=== PATIENT | male | born 1985 | race African-American/Black ===

== ENCOUNTER 2017-07-20 13:53 | Inpatient (IN) | payer SELFPAY ==
[~2017-07-20] VITALS: Ht 175.3 cm; Wt 93.9 kg
[2017-07-20 13:56] VITALS: BP 175/93; PULSE 45; RESP 16; TEMP 98.5; O2SAT 98
[2017-07-20] MEDS ORDERED: LIDOCAINE VISCOUS 2% SOLN 15 ML UDC PO ONE (14:15)
[2017-07-20] MEDS ORDERED: ALUMINUM/MAGNESIUM/SIMETH 30 ML CUP PO ONE (14:15)
[2017-07-20] MEDS ORDERED: SODIUM CHLORIDE 0.9% FLUSH 10 ML FLUSH IV FLUSH PRN ×2 (14:15→18:30)
[2017-07-20] MEDS ORDERED: SODIUM CHLOR 0.9% 1000 ML INJ 1,000 ML IV SCH (14:15)
[2017-07-20] MEDS ORDERED: FAMOTIDINE 20 MG/2 ML VIAL IV PUSH ONE (14:15)
--- NOTE | 2017-07-20 14:21 | PD ---
HPI Chief Complaint: GI Complaint Time Seen by Provider: 14:14 Travel History International Travel<30 days: No Contact w/Intl Traveler<30days: No Traveled to known affect area: No History of Present Illness HPI 32-year-old Afro-Cuban male presents the emergency department with 3 day history of nausea, vomiting, and generalized abdominal pain. Patient states he thought it was a stomach bug and was trying to ride it out. Patient states he just isn't getting better and can't keep anything down. Patient states no diarrhea but he hasn't been eating due to the vomiting. Patient denies specific point tenderness in the abdomen. He has generalized epigastric tenderness. He denies blood in the emesis. He denies fever but has had chills. He has generalized body aches and weakness. He is urinating but it is decreased in volume. His pain is 3 out of 10. He is allergic to penicillin PFSH Past Medical History Medical History: Denies Significant Hx Past Surgical History Surgical History: No Previous Surgery Social History Alcohol Use: No Tobacco Use: No Substance Use: No Allergies-Medications (Allergen,Severity, Reaction): Coded Allergies: Penicillins (Verified Allergy, Severe, Hives, 07/20/17) Reported Meds & Prescriptions Reported Meds & Active Scripts Active No Active Prescriptions or Reported Medications Review of Systems Except as stated in HPI: all other systems reviewed are Neg General / Constitutional: Positive: Chills, No: Fever Eyes: No: Visual changes HENT: No: Headaches Cardiovascular: No: Chest Pain or Discomfort Respiratory: No: Shortness of Breath Gastrointestinal: Positive: Nausea, Vomiting, Abdominal Pain, Loss of Appetite , No: Diarrhea, Hematemesis, Hematochezia, Constipation, Changes in Bowel Habits , Indigestion, Dysphagia Genitourinary: Positive: Decreased Urinary Output, No: Dysuria Musculoskeletal: No: Pain Skin: No Rash Neurologic: No: Weakness Psychiatric: No: Depression Endocrine: No: Polydipsia Hematologic/Lymphatic: No: Easy Bruising Physical Exam Narrative GENERAL: Patient appears ill but not septic. SKIN: Warm and dry. Normal color. Decreased turgor. HEAD: Atraumatic. Normocephalic. EYES: Pupils equal and round. No scleral icterus. No injection or drainage. ENT: No nasal bleeding or discharge. Mucous membranes pink and dry. Pharynx is clear. Airway is patent. NECK: Trachea midline. Supple and nontender. CARDIOVASCULAR: Bradycardic rate and normal rhythm. Patient states this is normal for him. RESPIRATORY: No accessory muscle use. Clear to auscultation. Breath sounds equal bilaterally. GASTROINTESTINAL: Abdomen soft, generalized nonspecific tenderness, nondistended. No point tenderness or rebound. No CVA tenderness. Hepatic and splenic margins not palpable. MUSCULOSKELETAL: Extremities without clubbing, cyanosis, or edema. No obvious deformities. NEUROLOGICAL: Awake and alert. No obvious cranial nerve deficits. Motor grossly within normal limits. Five out of 5 muscle strength in the arms and legs. Normal speech. PSYCHIATRIC: Appropriate mood and affect; insight and judgment normal. Data Data Last Documented VS Vital Signs Date Time Temp Pulse Resp B/P (MAP) Pulse Ox O2 Delivery O2 Flow Rate FiO2 07/20/17 16:22 98.2 52 17 139/73 (95) 99 Orders Orders Complete Blood Count With Diff (07/20/17 14:15) Comprehensive Metabolic Panel (07/20/17 14:15) Lipase (07/20/17 14:15) Lactic Acid (07/20/17 14:15) Prothrombin Time / Inr (Pt) (07/20/17 14:15) Act Partial Throm Time (Ptt) (07/20/17 14:15) Urinalysis - C+S If Indicated (07/20/17 14:15) Ct Abd/Pel W Iv Contrast(Rout) (07/20/17 14:15) Iv Access Insert/Monitor (07/20/17 14:15) Ecg Monitoring (07/20/17 14:15) Oximetry (07/20/17 14:15) NPO (07/20/17 14:15) Sodium Chlor 0.9% 1000 Ml Inj (Ns 1000 M (07/20/17 14:15) Sodium Chloride 0.9% Flush (Ns Flush) (07/20/17 14:15) Chest, Single Ap (07/20/17 14:15) Famotidine Inj (Pepcid Inj) (07/20/17 14:15) Al-Mag Hy-Si 40-40-4 Mg/Ml Liq (Mag-Al P (07/20/17 14:15) Lidocaine 2% Viscous (Xylocaine 2% Visco (07/20/17 14:15) Iohexol 350 Inj (Omnipaque 350 Inj) (07/20/17 15:22) Sodium Chlor 0.9% 1000 Ml Inj (Ns 1000 M (07/20/17 15:50) Sodium Chlor 0.9% 1000 Ml Inj (Ns 1000 M (07/20/17 16:20) Hydromorphone Pf Inj (Dilaudid Pf Inj) (07/20/17 16:00) Admit Order (Ed Use Only) (07/20/17 16:55) Labs Laboratory Tests Test 07/20/17 14:30 White Blood Count 11.3 TH/MM3 Red Blood Count 5.45 MIL/MM3 Hemoglobin 15.7 GM/DL Hematocrit 46.8 % Mean Corpuscular Volume 85.9 FL Mean Corpuscular Hemoglobin 28.7 PG Mean Corpuscular Hemoglobin Concent 33.5 % Red Cell Distribution Width 13.3 % Platelet Count 218 TH/MM3 Mean Platelet Volume 8.9 FL Neutrophils (%) (Auto) 73.9 % Lymphocytes (%) (Auto) 11.0 % Monocytes (%) (Auto) 12.0 % Eosinophils (%) (Auto) 0.9 % Basophils (%) (Auto) 2.2 % Neutrophils # (Auto) 8.3 TH/MM3 Lymphocytes # (Auto) 1.2 TH/MM3 Monocytes # (Auto) 1.4 TH/MM3 Eosinophils # (Auto) 0.1 TH/MM3 Basophils # (Auto) 0.2 TH/MM3 CBC Comment DIFF FINAL Differential Comment Prothrombin Time 10.0 SEC Prothromb Time International Ratio 0.9 RATIO Activated Partial Thromboplast Time 28.4 SEC Blood Urea Nitrogen 25 MG/DL Creatinine 9.53 MG/DL Random Glucose 85 MG/DL Total Protein 8.1 GM/DL Albumin 4.3 GM/DL Calcium Level 9.1 MG/DL Alkaline Phosphatase 62 U/L Aspartate Amino Transf (AST/SGOT) 33 U/L Alanine Aminotransferase (ALT/SGPT) 25 U/L Total Bilirubin 0.5 MG/DL Sodium Level 133 MEQ/L Potassium Level 3.5 MEQ/L Chloride Level 98 MEQ/L Carbon Dioxide Level 26.9 MEQ/L Anion Gap 8 MEQ/L Estimat Glomerular Filtration Rate 8 ML/MIN Lactic Acid Level 1.0 mmol/L Lipase 115 U/L MDM Medical Decision Making Medical Screen Exam Complete: Yes Emergency Medical Condition: Yes Differential Diagnosis Nausea vomiting. Gastritis. Epigastric pain. Narrative Course Patient is medically stable at time of exam. Labs ordered including CBC, CMP, lactic acid, lipase, and urinalysis. CT of the abdomen and pelvis is ordered. Chest x-ray is ordered. IV access is obtained patient is given 4 mg Zofran IV, as well as 20 mg Pepcid IV. Patient is given thousand milligrams normal saline bolus. CBC shows slight leukocytosis of 11.3. Chemistry shows mild hyponatremia of 133, BUN 25, creatinine of 9.53 GFR is 8. Lactic acid is 1.0. Coagulation studies are normal. Patient is given 1 mg hydromorphone IV for his abdominal pain. Patient is started on 2 L bolus of normal saline. Patient is discussed with Dr. Park, and call was placed to the natural resources professor as well as the hospitalist for admission. Patient is discussed with Dr. Lima, who recommended fluids and hospitalization. Patient was discussed with Dr. Haywadr, the resident, who agreed to admit the patient. Diagnosis Primary Impression: Acute renal failure Qualified Codes: N17.9 - Acute kidney failure, unspecified Additional Impressions: Elevated serum creatinine Nausea and vomiting Qualified Codes: R11.2 - Nausea with vomiting, unspecified Abdominal pain Qualified Codes: R10.84 - Generalized abdominal pain Admitting Information Admitting Physician Requests: Admit Scripts No Active Prescriptions or Reported Meds Condition: Stable Ken Cruz Jul 20, 2017 14:21
--- NOTE | 2017-07-20 14:43 | RADRPT ---
EXAM DATE/TIME: 07/20/2017 14:20 [facility] COMPARISON: No previous studies available for comparison. INDICATIONS : Nausea, vomiting, fever x4 days. MEDICAL HISTORY : None. SURGICAL HISTORY : None. ENCOUNTER: Initial ACUITY: 4 - 6 days PAIN SCORE: 0/10 LOCATION: Chest FINDINGS: A single view of the chest demonstrates the lungs to be symmetrically aerated without evidence of mas s, infiltrate or effusion. The cardiomediastinal contours are unremarkable. Osseous structures are intact. CONCLUSION: Normal examination. Earnest Brock MD on July 20, 2017 at 14:41 Board Certified Radiologist. This report was verified electronically.
[2017-07-20 15:08] LABS: AUTOMATED NEUTROPHIL # 8.3 TH/MM3 (1.8-7.7); BASOPHIL # 0.2 TH/MM3 (0-0.2); BASOPHIL % 2.2 % (0.0-2.0); EOSINOPHIL # 0.1 TH/MM3 (0-0.4); EOSINOPHIL % 0.9 % (0.0-4.0); HEMATOCRIT 46.8 % (39.0-51.0); HEMO FLAGS DIFF FINAL; LYMPHOCYTE # 1.2 TH/MM3 (1.0-4.8); MEAN CELL VOLUME 85.9 FL (80.0-100.0); MEAN CORPUSCULAR HEMOGLOBIN 28.7 PG (27.0-34.0); MEAN CORPUSCULAR HGB CONC 33.5 % (32.0-36.0); NEUT % 73.9 % (16.0-70.0); PLATELET COUNT 218 TH/MM3 (150-450); RED BLOOD COUNT 5.45 MIL/MM3 (4.50-5.90); RED CELL DISTRIBUTION WIDTH 13.3 % (11.6-17.2); WHITE BLOOD COUNT 11.3 TH/MM3 (4.0-11.0)
--- NOTE | 2017-07-20 15:09 | PD ---
Physical Exam Date Seen by Provider: Jul 20, 2017 Narrative Patient presents with vomiting for the last 3 days. Data Data Last Documented VS Vital Signs Date Time Temp Pulse Resp B/P (MAP) Pulse Ox O2 Delivery O2 Flow Rate FiO2 07/20/17 14:26 (120) 07/20/17 13:56 98.5 45 16 98 Orders Orders Complete Blood Count With Diff (07/20/17 14:15) Comprehensive Metabolic Panel (07/20/17 14:15) Lipase (07/20/17 14:15) Lactic Acid (07/20/17 14:15) Prothrombin Time / Inr (Pt) (07/20/17 14:15) Act Partial Throm Time (Ptt) (07/20/17 14:15) Urinalysis - C+S If Indicated (07/20/17 14:15) Ct Abd/Pel W Iv Contrast(Rout) (07/20/17 14:15) Iv Access Insert/Monitor (07/20/17 14:15) Ecg Monitoring (07/20/17 14:15) Oximetry (07/20/17 14:15) NPO (07/20/17 14:15) Sodium Chlor 0.9% 1000 Ml Inj (Ns 1000 M (07/20/17 14:15) Sodium Chloride 0.9% Flush (Ns Flush) (07/20/17 14:15) Chest, Single Ap (07/20/17 14:15) Famotidine Inj (Pepcid Inj) (07/20/17 14:15) Al-Mag Hy-Si 40-40-4 Mg/Ml Liq (Mag-Al P (07/20/17 14:15) Lidocaine 2% Viscous (Xylocaine 2% Visco (07/20/17 14:15) Labs Laboratory Tests Test 07/20/17 14:30 MDM Supervised Visit with SAMMY: Yes Narrative Course I, Dr. Park, have reviewed the advance practice practitioner's documentation and am in agreement, met with the patient face to face, made the diagnosis, and the medical decision making was done by me. *My assessment and Findings: This is a healthy-appearing young man who does not appear to be in any acute distress. He does act like he feels poorly. His abdomen is soft with some diffuse tenderness. Please see Kolton Cruz PA-C's note for results of laboratory and radiographic evaluation, ED course, final diagnosis and disposition Scripts No Active Prescriptions or Reported Meds Condition: Khalida Arreola MD Jul 20, 2017 15:09
[2017-07-20 15:18] LABS: ALKALINE PHOSPHATASE 62 U/L (45-117); TOTAL BILIRUBIN ADULT 0.5 MG/DL (0.2-1.0)
[2017-07-20] MEDS ORDERED: IOHEXOL 350 MG/ML 10 ML VIAL (for RAD DIAG) IVCONTRAST ONE (15:22)
[2017-07-20 15:35] LABS: ALT (GPT) 25 U/L (12-78); ANION GAP 8 MEQ/L (5-15); AST (GOT) 33 U/L (15-37); BICARBONATE 26.9 MEQ/L (21.0-32.0); BLOOD UREA NITROGEN 25 MG/DL (7-18); CHLORIDE 98 MEQ/L (98-107); GLOMERULAR FILTRATION RATE 8 ML/MIN (>89); POTASSIUM 3.5 MEQ/L (3.5-5.1); SODIUM (NA) 133 MEQ/L (136-145)
[2017-07-20 15:44] LABS: APTT (PATIENT) 28.4 SEC (24.3-30.1); INTERNATIONAL NORMALIZED RATIO 0.9 RATIO
--- NOTE | 2017-07-20 15:48 | RADRPT ---
EXAM DATE/TIME: 07/20/2017 15:21 [facility] COMPARISON: No previous studies available for comparison. INDICATIONS : Epigastric pain. IV CONTRAST: 82 cc Omnipaque 350 (iohexol) IV ORAL CONTRAST: No oral contrast ingested. RADIATION DOSE: 6.25 CTDIvol (mGy) MEDICAL HISTORY : None SURGICAL HISTORY : None. ENCOUNTER: Initial ACUITY: 1 day PAIN SCALE: 4/10 LOCATION: upper quadrant TECHNIQUE: Volumetric scanning of the abdomen and pelvis was performed. Using automated exposure control and ad justment of the mA and/or kV according to patient size, radiation dose was kept as low as reasonably achievable to obtain optimal diagnostic quality images. DICOM format image data is available electro nically for review and comparison. FINDINGS: LOWER LUNGS: The visualized lower lungs are clear. LIVER: Homogeneous density without lesion. There is no dilation of the biliary tree. No calcified gallston es. SPLEEN: Normal size without lesion. PANCREAS: Within normal limits. KIDNEYS: Normal in size and shape. There is no mass, stone or hydronephrosis. ADRENAL GLANDS: Within normal limits. VASCULAR: There is no aortic aneurysm. BOWEL/MESENTERY: The stomach, small bowel, and colon demonstrate no acute abnormality. There is no free intraperitone al air or fluid. ABDOMINAL WALL: Within normal limits. RETROPERITONEUM: There is no lymphadenopathy. BLADDER: No wall thickening or mass. REPRODUCTIVE: Within normal limits. INGUINAL: There is no lymphadenopathy or hernia. MUSCULOSKELETAL: Within normal limits for patient age. CONCLUSION: Normal examination. Asim Leyva Jr., MD on July 20, 2017 at 15:42 Board Certified Radiologist. This report was verified electronically.
[2017-07-20] MEDS ORDERED: SODIUM CHLOR 0.9% 1000 ML INJ 1,000 ML IV ONE ×2 (15:50→16:20)
[2017-07-20] MEDS ORDERED: HYDROmorphone HCL PF 1 MG/ML VIAL IV PUSH ONE (16:00)
[2017-07-20 16:22] VITALS: BP 139/73; PULSE 52; RESP 17; TEMP 98.2; O2SAT 99
--- NOTE | 2017-07-20 17:37 | HHI.HP ---
HPI Service Family Medicine Primary Care Physician No Primary Care Physician Admission Diagnosis Acute Renal Failure Diagnoses: International Travel<30 Days: No Contact w/Intl Traveler<30days: No Known Affected Area: No History of Present Illness Mr. Nelson is a 32-year-old male with no past medical history presenting with nausea and vomiting. He states that his vomiting started 3 days ago, Saturday. He thought he had a caught a bug from his family because they were sick with colds. He had not eaten anything differently. He also states that he has abdominal pain. He describes this pain as a 6 out of 10, diffuse aching pain that is constant with no radiation. Vomiting makes it worse and a medication given in the ED made it better. He describes the vomit as looking like whatever he ate. Nonbloody, but bilious (greenish). He ultimately came to the hospital today because of vomiting wouldn't stop. The last meal that stayed down was 3 days ago, Saturday. He states that he also had decreased urine output. These last few days he has only urinated twice. He usually urinates a lot during the day. He describes his urine as not cloudy, nonbloody. No family history of any kidney problems no PMH of kidney problems. No history of any kidney stones. He took one antibiotic pill that he got from a friend a few days ago. Only took 2 ibuprofens a day. He has also been constipated for the past few days. He had one black stool today. However, he has used Pepto-Bismol these past few days. Review of Systems Constitutional: COMPLAINS OF: Diaphoretic episodes, Chills, Dizziness, Change in appetite (decreased), Night Sweats, DENIES: Fever Eyes: DENIES: Blurred vision Ears, nose, mouth, throat: DENIES: Tinnitus, Running Nose Respiratory: COMPLAINS OF: Cough (started today), DENIES: Shortness of breath Cardiovascular: DENIES: Chest pain, Palpitations, Dyspnea on Exertion, Lower Extremity Edema Gastrointestinal: COMPLAINS OF: Abdominal pain, Black stools, Constipation, DENIES: Bloody stools, Difficulty Swallowing Musculoskeletal: DENIES: Joint pain, Joint Swelling Integumentary: DENIES: Rash Hematologic/lymphatic: DENIES: Bruising Neurologic: COMPLAINS OF: Headache, DENIES: Localized weakness, Paresthesias Past Family Social History Past Medical History none Past Surgical History cleft palate repaired Reported Medications Multivitamins Fish oil Allergies: Coded Allergies: Penicillins (Verified Allergy, Severe, Hives, 07/20/17) Family History Mother- HTN Father- Decreased, from dementia Social History Lives in [place] Lives with a roommate Works at [employer] Alcohol- one cup of Fausto a night Cigarettes- black and milds, 3 a day since 13 Illicit drugs- marijuana 2 joints a day since 14 Sexual hx- interested in women has 2 partners had hx of gonorrhea Physical Exam Vital Signs Vital Signs Date Time Temp Pulse Resp B/P (MAP) Pulse Ox O2 Delivery O2 Flow Rate FiO2 07/20/17 16:31 17 07/20/17 16:22 98.2 52 17 139/73 (95) 99 07/20/17 14:26 (120) 07/20/17 13:56 98.5 45 16 175/93 (120) 98 Physical Exam GENERAL: This is a well-nourished, well-developed -[place]er male patient laying in bed, in no apparent distress. Bright green vomit stains the blankets on his bed. SKIN: No rashes, ecchymoses or lesions. Cool and dry. HEAD: Atraumatic. Normocephalic. No temporal or scalp tenderness. EYES: Pupils equal round and reactive. Extraocular motions intact. No scleral icterus. No injection or drainage. ENT: Nose without bleeding, purulent drainage or septal hematoma. Throat without erythema, tonsillar hypertrophy or exudate. Uvula midline. Airway patent. NECK: Trachea midline. No JVD or lymphadenopathy. Supple, nontender, no meningeal signs. CARDIOVASCULAR: Regular rate and rhythm without murmurs, gallops, or rubs. RESPIRATORY: Clear to auscultation. Breath sounds equal bilaterally. No wheezes , rales, or rhonchi. GASTROINTESTINAL: Abdomen soft, non-tender, nondistended. No hepato-splenomegaly , or palpable masses. No guarding. BACK: No CVA tenderness MUSCULOSKELETAL: Extremities without clubbing, cyanosis, or edema. No joint tenderness, effusion, or edema noted. NEUROLOGICAL: Awake and alert. Motor and sensory grossly within normal limits. Normal speech. Laboratory Laboratory Tests Test 07/20/17 14:30 White Blood Count 11.3 Red Blood Count 5.45 Hemoglobin 15.7 Hematocrit 46.8 Mean Corpuscular Volume 85.9 Mean Corpuscular Hemoglobin 28.7 Mean Corpuscular Hemoglobin Concent 33.5 Red Cell Distribution Width 13.3 Platelet Count 218 Mean Platelet Volume 8.9 Neutrophils (%) (Auto) 73.9 Lymphocytes (%) (Auto) 11.0 Monocytes (%) (Auto) 12.0 Eosinophils (%) (Auto) 0.9 Basophils (%) (Auto) 2.2 Neutrophils # (Auto) 8.3 Lymphocytes # (Auto) 1.2 Monocytes # (Auto) 1.4 Eosinophils # (Auto) 0.1 Basophils # (Auto) 0.2 CBC Comment DIFF FINAL Differential Comment Prothrombin Time 10.0 Prothromb Time International Ratio 0.9 Activated Partial Thromboplast Time 28.4 Blood Urea Nitrogen 25 Creatinine 9.53 Random Glucose 85 Total Protein 8.1 Albumin 4.3 Calcium Level 9.1 Alkaline Phosphatase 62 Aspartate Amino Transf (AST/SGOT) 33 Alanine Aminotransferase (ALT/SGPT) 25 Total Bilirubin 0.5 Sodium Level 133 Potassium Level 3.5 Chloride Level 98 Carbon Dioxide Level 26.9 Anion Gap 8 Estimat Glomerular Filtration Rate 8 Lactic Acid Level 1.0 Lipase 115 Result Diagram: 07/20/17 1430 07/20/17 1430 Imaging Last Impressions Chest X-Ray 07/20/171414 Signed Impressions: Service Date/Time: Thursday, July 20, 2017 14:20 - CONCLUSION: Normal examination. Earnest Brock MD Abdomen/Pelvis CT 07/20/171414 Signed Impressions: Service Date/Time: Thursday, July 20, 2017 15:21 - CONCLUSION: Normal examination. MD Michael Woods Jr.i VTE Risk Assessment Caprini VTE Risk Assessment: No/Low Risk (score <= 1) Caprini Risk Assessment Model Point Value = 1 Point Value = 2 Point Value = 3 Point Value = 5 Age 41-60 Minor surgery BMI > 25 kg/m2 Swollen legs Varicose veins or History of unexplained or recurrent spontaneous Oral contraceptives or hormone replacement Sepsis (< 1 month) Serious lung disease, including pneumonia (< 1 month) Abnormal pulmonary function Acute myocardial infarction Congestive heart failure (< 1 month) History of inflammatory bowel disease Medical patient at bed rest Age 61-74 Arthroscopic surgery Major open surgery (> 45 min) Laparoscopic surgery (> 45 min) Malignancy Confined to bed (> 72 hours) Immobilizing plaster cast Central venous access Age >= 75 History of VTE Family history of VTE Factor V Leiden Prothrombin [id number] Lupus anticoagulant Anticardiolipin antibodies Elevated serum homocysteine Heparin-induced thrombocytopenia Other congenital or acquired thrombophilia Stroke (< 1 month) Elective arthroplasty Hip, pelvis, or leg fracture Acute spinal cord injury (< 1 month) Prophylaxis Regimen Total Risk Factor Score Risk Level Prophylaxis Regimen 0-1 Low Early ambulation 2 Moderate Order ONE of the following: *Sequential Compression Device (SCD) *Heparin 5000 units SQ BID 3-4 Higher Order ONE of the following medications: *Heparin 5000 units SQ TID *Enoxaparin/Lovenox 40 mg SQ daily (WT < 150 kg, CrCl > 30 mL/min) *Enoxaparin/Lovenox 30 mg SQ daily (WT < 150 kg, CrCl > 10-29 mL/min) *Enoxaparin/Lovenox 30 mg SQ BID (WT < 150 kg, CrCl > 30 mL/min) AND/OR *Sequential Compression Device (SCD) 5 or more Highest Order ONE of the following medications: *Heparin 5000 units SQ TID (Preferred with Epidurals) *Enoxaparin/Lovenox 40 mg SQ daily (WT < 150 kg, CrCl > 30 mL/min) *Enoxaparin/Lovenox 30 mg SQ daily (WT < 150 kg, CrCl > 10-29 mL/min) *Enoxaparin/Lovenox 30 mg SQ BID (WT < 150 kg, CrCl > 30 mL/min) AND *Sequential Compression Device (SCD) Assessment and Plan Assessment and Plan Mr. Nelson is a 32-year-old male presenting with vomiting. He is being admitted for acute renal failure. Creatinine upon admission to the ED was 9.53. Code Status Full Code Discussed Condition With SDW Dr. Deborah Hayward Problem List: (1) Acute renal failure ICD Codes: N17.9 - Acute kidney failure, unspecified Status: Acute Plan: Creatinine upon admission to the ED was 9.53. Last creatinine on record at [facility] was 02/2004 which was 1.9. Previous to that was 05/2003- 1.1. Patient did have a CT with contrast today so will expect a greater increase in creatinine. BUN at 25. Most likely due to dehydration from vomiting. * Given 2 2L boluses and a 1L bolus in ED * Nephrology consulted, appreciate recs * D5W-1/2NS at 100mls/hr * maintenance IV fluids and send the workup for vasculitis including RIVAS, ANCA and also serum protein electrophoresis along with complement. * If his renal function does not improve, he possibly will need dialysis. Also he will need biopsy of the kidney. * Repeat BMP at 1999 * Monitor I&Os * Avoid nephrotoxic medications * Renally dose medications (2) Dehydration ICD Codes: E86.0 - Dehydration Status: Acute Plan: Due to vomiting and not hydrating for the past 3 days. * See plan above for ED course and IVF regimen (3) Nausea and vomiting ICD Codes: R11.2 - Nausea with vomiting, unspecified Status: Acute Plan: Mostly due to gastritis. * See plan above for hydration * NPO for now, advance diet as tolerated * Zofran for nausea (4) FEN Status: Acute Plan: Fluids: Maintenance fluids as above Electrolytes: Monitor and replete as needed Nutrition: NPO for now, advance as tolerated DVT ppx: Not indicated at this time GI ppx: PRN meds Pain mgmt: Tylenol and [place] Physician Certification 2 Midnight Certification Type: Admission for Inpatient Services Order for Inpatient Services The services are ordered in accordance with Medicare regulations or non- Medicare payer requirements, as applicable. In the case of services not specified as inpatient-only, they are appropriately provided as inpatient services in accordance with the 2-midnight benchmark. Estimated LOS (days): 2 days is the estimated time the patient will need to remain in the hospital, assuming treatment plan goals are met and no additional complications. Post-Hospital Plan: Home Problem Qualifiers (1) Acute renal failure: Qualified Codes: N17.9 - Acute kidney failure, unspecified (2) Nausea and vomiting: Qualified Codes: R11.2 - Nausea with vomiting, unspecified Lisa Redman MD R1 Jul 20, 2017 17:37
[2017-07-20 17:45] VITALS: BP 126/81; TEMP 97.8
--- NOTE | 2017-07-20 18:23 | MB ---
cc: ROSIBEL DUFFY MD DATE OF CONSULTATION: 07/20/2017. REASON FOR CONSULTATION: Elevated BUN and creatinine. HISTORY OF PRESENT ILLNESS: This is a 32-year-old male with no significant past medical history who came to the hospital with complaint of abdominal pain mainly in the epigastric area associated with vomiting. I was called to see the patient because of very high BUN and creatinine. The patient denies any known history of renal disease. He has not been seeing any steel sampler or any other medical doctors. On looking back, it seems like his creatinine was 1.1 in 2002 and 1.9 in 2003. He did not have any labs in-between them. The patient started vomiting about four days ago with epigastric pain and since he had pain, he was taking ibuprofen [id number] and he was vomiting extensively about six to seven times per day. There was no blood in the vomitus. He does not have any diarrhea. He has constipation. He did notice that his urine output has decreased and he passed urine two times only in the last three days. There was no blood in the urine. He denies any history of renal stone or any other renal disease in the family. PAST MEDICAL HISTORY: None. PAST SURGICAL HISTORY: Cleft palate repair. REVIEW OF SYSTEMS: The patient has generalized weakness, feeling tired. He has this nausea, vomiting and epigastric pain going on for the last four days, vomiting almost seven to eight times per day. There is no history of diarrhea. He has constipation. He has epigastric pain. There is no shortness of breath. No chest pain. No palpitations. No dysuria or hematuria but he has decreased urine output for the last three days. He passed urine only twice. SOCIAL HISTORY: The patient is single. 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 He smokes a cigar three to four per day. He uses marijuana. He drinks liquor five times a week. ALLERGIES: HE HAS ALLERGY TO PENICILLIN. MEDICATIONS: He was given IV fluids and he was given Dilaudid. PHYSICAL EXAMINATION: GENERAL: On examination the patient is awake, alert. He is not in acute distress. VITAL SIGNS: His last blood pressure was 126/81, temperature 97.8, oxygen saturation 99%. HEAD, EYES, EARS, NOSE, THROAT: The pupils are mid constricted. Nonicteric sclerae. Conjunctivae are pale. NECK: The neck is supple. JVD is not elevated. LUNGS: The patient has bilateral good air entry with occasional wheezing. HEART: S1 and S2 regular rhythm. ABDOMEN: Abdomen soft and lax. There is mild epigastric tenderness. There is no rebound or rigidity. Bowel sounds positive. EXTREMITIES: There is no pedal edema. INVESTIGATIONS: White blood cell count is 11.3, hemoglobin 15.7, platelet count of 218,000. Neutrophils 73.9%. Eosinophils 0.9%. Sodium 133, potassium 3.5, chloride 98, bicarbonate 26.9, BUN 25, creatinine 9.5, total bilirubin is 0.5. AST and ALT are normal. Total protein is 8.1 with albumin of 4.3. INR is 0.9. Urinalysis showing that there is no protein but this was done in 2002. IMAGING STUDIES: CT scan of the abdomen and pelvis was done with IV contrast and showed that both kidneys look normal in size. There is no hydronephrosis or mass. Chest x-ray was also done which was normal. ASSESSMENT AND PLAN: 1. Acute kidney injury with possibility of chronic kidney disease. 2. Vomiting and epigastric pain, possible gastritis. 3. Dehydration. 4. Hyponatremia. The patient has very high BUN and creatinine. Part of this could be acute because of vomiting and dehydration. He needs more hydration. He has been given boluses of IV fluids. I will put him on maintenance IV fluids and send the workup for vasculitis including RIVAS, ANCA and also serum protein electrophoresis along with complement. If his renal function does not improve, he possibly will need dialysis. This was discussed with the patient and also he will need biopsy of the kidney. Thank you for the consultation and I will follow the patient while he is in the hospital. MD TEODORA Morrell/MIGUEL /5:55 PM /6:08 PM
[2017-07-20] MEDS ORDERED: MAGNESIUM HYDROXIDE SUSP 30 ML CUP PO PRN (18:30)
[2017-07-20] MEDS ORDERED: SENNOSIDES 8.6 MG TAB PO PRN (18:30)
[2017-07-20] MEDS ORDERED: NALOXONE HCL 0.4 MG/ML AMP IV PUSH PRN ×2 (18:30→21:30)
[2017-07-20] MEDS ORDERED: BISACODYL 10 MG SUPP RECTAL PRN (18:30)
[2017-07-20] MEDS ORDERED: ACETAMINOPHEN 325 MG TAB PO PRN ×2 (18:30→21:30)
[2017-07-20] MEDS ORDERED: LACTULOSE SYRUP 20 GM/30 ML CUP PO PRN (18:30)
[2017-07-20] MEDS: DEXT 5%-NACL 0.45% 1000 ML INJ 1,000 ML IV SCH (18:51)
[2017-07-20 19:19] LABS: CKMB 1.7 NG/ML (0.5-3.6)
[2017-07-20] MEDS: SODIUM CHLORIDE 0.9% FLUSH 10 ML FLUSH IV FLUSH SCH (20:29)
[2017-07-20] MEDS: DOCUSATE SODIUM 50 MG/SENNA 8.6 MG TAB PO SCH (20:29)
[2017-07-20 20:30] VITALS: PULSE 49
[2017-07-20] MEDS ORDERED: SODIUM CHLORIDE 0.9% FLUSH 10 ML FLUSH IV FLUSH SCH (21:00)
[2017-07-20 21:39] VITALS: BP 165/93; PULSE 50; RESP 20; TEMP 98.2; O2SAT 98
[2017-07-20 21:39] LABS: BICARBONATE 24.1 MEQ/L (21.0-32.0); POTASSIUM 3.6 MEQ/L (3.5-5.1)
[2017-07-20] MEDS: ACETAMINOPHEN/HYDROcodone 325 MG/7.5 MG TAB PO PRN (22:11)
[2017-07-21] MEDS: cloNIDine HCL 0.1 MG TAB PO PRN ×2 (00:23→17:10)
[2017-07-21 00:56] VITALS: BP 172/84; PULSE 50; RESP 20; TEMP 98.6; O2SAT 98
[2017-07-21] MEDS: ONDANSETRON HCL 4 MG/2 ML VIAL IVP PRN ×3 (02:42→17:29)
[2017-07-21] MEDS: ACETAMINOPHEN/HYDROcodone 325 MG/7.5 MG TAB PO PRN ×5 (02:42→21:47)
[2017-07-21] MEDS: DEXT 5%-NACL 0.45% 1000 ML INJ 1,000 ML IV SCH ×3 (02:44→21:41)
[2017-07-21 03:15] LABS: BACTERIA, URINE RARE /hpf; BLOOD, URINE SMALL (NEG); COMMENT (UR) CULT NOT INDICATED; CULTURE IF INDICATED CULT NOT INDICATED; GLUCOSE,URINE NEG (NEG); KETONE, URINE NEG (NEG); NITRITE,URINE NEG (NEG); PH, URINE 5.5 (5.0-8.5); URINE COLOR LIGHT-YELLOW (YELLW/STRAW)
[2017-07-21 05:32] VITALS: BP 138/81; PULSE 50; RESP 18; TEMP 98.3; O2SAT 97
[2017-07-21 08:00] VITALS: BP 138/79; PULSE 50; RESP 19; TEMP 96.9; O2SAT 99
[2017-07-21 08:33] LABS: AUTOMATED NEUTROPHIL # 6.1 TH/MM3 (1.8-7.7); BASOPHIL % 0.3 % (0.0-2.0); EOSINOPHIL # 0.2 TH/MM3 (0-0.4); EOSINOPHIL % 1.7 % (0.0-4.0); HEMATOCRIT 41.1 % (39.0-51.0); HEMO FLAGS DIFF FINAL; LYMPH % 18.2 % (9.0-44.0); LYMPHOCYTE # 1.7 TH/MM3 (1.0-4.8); MEAN CELL VOLUME 85.8 FL (80.0-100.0); MEAN CORPUSCULAR HEMOGLOBIN 28.7 PG (27.0-34.0); MEAN CORPUSCULAR HGB CONC 33.4 % (32.0-36.0); MONO % 15.6 % (0.0-8.0); NEUT % 64.2 % (16.0-70.0); PLATELET COUNT 179 TH/MM3 (150-450); RED BLOOD COUNT 4.79 MIL/MM3 (4.50-5.90); RED CELL DISTRIBUTION WIDTH 13.4 % (11.6-17.2); WHITE BLOOD COUNT 9.5 TH/MM3 (4.0-11.0)
[2017-07-21] MEDS: SODIUM CHLORIDE 0.9% FLUSH 10 ML FLUSH IV FLUSH SCH ×2 (08:39→20:16)
[2017-07-21] MEDS: DOCUSATE SODIUM 50 MG/SENNA 8.6 MG TAB PO SCH ×2 (08:39→20:16)
[2017-07-21 09:04] LABS: ALKALINE PHOSPHATASE 52 U/L (45-117); ALT (GPT) 16 U/L (12-78); ANION GAP 8 MEQ/L (5-15); AST (GOT) 19 U/L (15-37); BICARBONATE 25.1 MEQ/L (21.0-32.0); BLOOD UREA NITROGEN 25 MG/DL (7-18); CHLORIDE 105 MEQ/L (98-107); CREATINE KINASE 652 U/L (39-308); GLOMERULAR FILTRATION RATE 9 ML/MIN (>89); MAGNESIUM 2.4 MG/DL (1.5-2.5); POTASSIUM 4.1 MEQ/L (3.5-5.1); SODIUM (NA) 138 MEQ/L (136-145); TOTAL BILIRUBIN ADULT 0.5 MG/DL (0.2-1.0); TOTAL PROTEIN SPE 5.9 GM/DL (6.0-7.6)
[2017-07-21 09:26] LABS: CKMB 1.8 NG/ML (0.5-3.6)
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
--- NOTE | 2017-07-21 10:47 | HHI.NPPN ---
Subjective Renal Failure: Chronic, Acute History of Present Illness 32-year-old male with no significant past medical history who came to the hospital with complaint of abdominal pain mainly in the epigastric area associated with vomiting. I was called to see the patient because of very high BUN and creatinine. The patient denies any known history of renal disease. He has not been seeing any textile engraver or any other medical doctors. On looking back, it seems like his creatinine was 1.1 in 2002 and 1.9 in 2003. Additional Remarks Patient is alert, feeling better, vomited last night, no abd. pain, mild nausea. Review of Systems General Constitutional: Fatigue Cardiovascular Cardiac: LACY Gastrointestinal Gastrointestinal: Abdominal Pain, Nausea & Vomiting Objective Data Data 07/21/17 07/22/17 19:00 07:00 Intake Total 120 ml Balance 120 ml Intake Oral 120 ml Vital Signs Date Time Temp Pulse Resp B/P (MAP) Pulse Ox O2 Delivery O2 Flow Rate FiO2 07/21/17 08:00 96.9 50 19 138/79 (98) 99 07/21/17 05:32 98.3 50 18 138/81 (100) 97 07/21/17 00:56 98.6 50 20 172/84 (113) 98 07/20/17 21:39 98.2 50 20 165/93 (117) 98 07/20/17 20:30 49 07/20/17 17:45 97.8 80 16 126/81 (96) 99 07/20/17 16:31 17 07/20/17 16:22 98.2 52 17 139/73 (95) 99 07/20/17 14:26 (120) 07/20/17 13:56 98.5 45 16 175/93 (120) 98 -: 07/21/17 0741 07/21/17 0741 Physical Exam General Appearance: No Acute Distress, Comfortable Eyes Eye Exam: Pupils Equal Throat Throat Exam: Oral Mucosa [place] & Moist Neck Neck Exam: Neck Supple Pulmonary Resp Exam: Clear Bilaterally, Breath Sounds Equal, No Distress Cardiology CV Exam: Regular, Normal Sinus Rhythm Gastrointestinal/Abdomen GI Exam: Soft, Non-Tender, Bowel Sounds Present Extremeties Extremities Exam: No Edema Neurologic Neuro Exam: Alert, Awake, Oriented Psychiatric Psych Exam: Appropriate Responses Assessment/Plan Assessment Summary: JOSSELIN/Acute Renal Failure Problem List: (1) Dehydration ICD Codes: E86.0 - Dehydration Status: Acute (2) Abdominal pain ICD Codes: R10.9 - Unspecified abdominal pain Status: Acute (3) Nausea and vomiting ICD Codes: R11.2 - Nausea with vomiting, unspecified Status: Acute (4) Acute renal failure ICD Codes: N17.9 - Acute kidney failure, unspecified Status: Acute Plan Patient has possibly chronic kidney disease and develop JOSSELIN. Creatinine is slightly better. Urine out put increased. BNP is better. Most likely has JOSSELIN due to NSAID, Dehydration and some element of Rhabdo. as CPK was high. Continue IVF, if have no significant improvement, possibly will need Renal Biopsy. C3 is slightly low, C4 is normal. Other serology and HIV all PND. Problem Qualifiers (1) Abdominal pain: Qualified Codes: R10.84 - Generalized abdominal pain (2) Nausea and vomiting: Qualified Codes: R11.2 - Nausea with vomiting, unspecified (3) Acute renal failure: Qualified Codes: N17.9 - Acute kidney failure, unspecified Manuelito Lima MD Jul 21, 2017 10:47
[2017-07-21 12:00] VITALS: BP 162/86; PULSE 50; RESP 20; TEMP 97.6; O2SAT 100
[2017-07-21 16:00] VITALS: BP 174/86; PULSE 50; RESP 20; TEMP 96.9; O2SAT 100
[2017-07-21] MEDS ORDERED: ONDANSETRON ODT 4 MG TAB PO ONE (20:45)
[2017-07-21 21:48] VITALS: BP 171/99; PULSE 48; RESP 18; TEMP 97.6; O2SAT 97
[2017-07-22] VITALS (7 sets, daily range): BP systolic 141–191; BP diastolic 69–101; PULSE 47–66; RESP 17–18; TEMP 96–99.3; O2SAT 93–99
[2017-07-22] MEDS: ACETAMINOPHEN/HYDROcodone 325 MG/5 MG TAB PO PRN ×4 (04:09→19:40)
[2017-07-22] MEDS: ONDANSETRON HCL 4 MG/2 ML VIAL IVP PRN ×3 (04:13→19:40)
[2017-07-22] MEDS: cloNIDine HCL 0.1 MG TAB PO PRN (05:02)
[2017-07-22 07:28] LABS: AUTOMATED NEUTROPHIL # 6.5 TH/MM3 (1.8-7.7); BASOPHIL % 0.3 % (0.0-2.0); EOSINOPHIL # 0.2 TH/MM3 (0-0.4); EOSINOPHIL % 1.8 % (0.0-4.0); HEMATOCRIT 38.1 % (39.0-51.0); HEMO FLAGS DIFF FINAL; LYMPH % 13.2 % (9.0-44.0); LYMPHOCYTE # 1.2 TH/MM3 (1.0-4.8); MEAN CELL VOLUME 85.4 FL (80.0-100.0); MEAN CORPUSCULAR HGB CONC 33.9 % (32.0-36.0); MONO % 14.4 % (0.0-8.0); NEUT % 70.3 % (16.0-70.0); PLATELET COUNT 174 TH/MM3 (150-450); RED BLOOD COUNT 4.46 MIL/MM3 (4.50-5.90); RED CELL DISTRIBUTION WIDTH 13.6 % (11.6-17.2); WHITE BLOOD COUNT 9.2 TH/MM3 (4.0-11.0)
[2017-07-22 07:53] LABS: BICARBONATE 22.3 MEQ/L (21.0-32.0); POTASSIUM 3.6 MEQ/L (3.5-5.1)
[2017-07-22] MEDS: DEXT 5%-NACL 0.45% 1000 ML INJ 1,000 ML IV SCH ×2 (08:39→19:39)
[2017-07-22] MEDS: DOCUSATE SODIUM 50 MG/SENNA 8.6 MG TAB PO SCH ×2 (08:40→19:40)
[2017-07-22] MEDS: SODIUM CHLORIDE 0.9% FLUSH 10 ML FLUSH IV FLUSH SCH ×2 (09:00→19:41)
--- NOTE | 2017-07-22 10:12 | HHI.NPPN ---
Subjective Renal Failure: Chronic, Acute History of Present Illness 32-year-old male with no significant past medical history who came to the hospital with complaint of abdominal pain mainly in the epigastric area associated with vomiting. I was called to see the patient because of very high BUN and creatinine. The patient denies any known history of renal disease. 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 On looking back, it seems like his creatinine was 1.1 in 2002 and 1.9 in 2003. Additional Remarks Patient is alert, feeling better, vomited yesterday afternoon, now on clear liquids. Review of Systems General Constitutional: Fatigue Cardiovascular Cardiac: LACY Gastrointestinal Gastrointestinal: Abdominal Pain, Nausea & Vomiting Objective Data Data Vital Signs Date Time Temp Pulse Resp B/P (MAP) Pulse Ox O2 Delivery O2 Flow Rate FiO2 07/22/17 08:00 98.6 51 17 152/100 (117) 99 07/22/17 05:06 97.9 52 18 174/82 (112) 97 07/22/17 00:38 97.9 55 18 162/81 (108) 93 07/21/17 21:48 97.6 48 18 171/99 (123) 97 07/21/17 16:00 96.9 50 20 174/86 (115) 100 07/21/17 12:00 97.6 50 20 162/86 (111) 100 -: 07/22/17 0551 07/22/17 0610 Physical Exam General Appearance: No Acute Distress, Comfortable Eyes Eye Exam: Pupils Equal Throat Throat Exam: Oral Mucosa [place] & Moist Neck Neck Exam: Neck Supple Pulmonary Resp Exam: Clear Bilaterally, Breath Sounds Equal, No Distress Cardiology CV Exam: Regular, Normal Sinus Rhythm Gastrointestinal/Abdomen GI Exam: Soft, Non-Tender, Bowel Sounds Present Extremeties Extremities Exam: No Edema Neurologic Neuro Exam: Alert, Awake, Oriented Psychiatric Psych Exam: Appropriate Responses Assessment/Plan Assessment Summary: JOSSELIN/Acute Renal Failure Problem List: (1) Dehydration ICD Codes: E86.0 - Dehydration Status: Acute (2) Abdominal pain ICD Codes: R10.9 - Unspecified abdominal pain Status: Acute (3) Nausea and vomiting ICD Codes: R11.2 - Nausea with vomiting, unspecified Status: Acute (4) Acute renal failure ICD Codes: N17.9 - Acute kidney failure, unspecified Status: Acute Plan Patient has possibly chronic kidney disease and develop JOSSELIN. Creatinine is slightly better. Urine out put increased. BNP is better. Most likely has JOSSELIN due to NSAID, Dehydration and some element of Rhabdo. as CPK was high. Continue IVF, C3 is slightly low, C4 is normal. Other serology and HIV all PND. Creatinine is slightly better, and the GFR now 12 ml/min. Follow the Creatinine if not normalized, will need kidney Biopsy. This can be done as out patient if needed. Problem Qualifiers (1) Abdominal pain: Qualified Codes: R10.84 - Generalized abdominal pain (2) Nausea and vomiting: Qualified Codes: R11.2 - Nausea with vomiting, unspecified (3) Acute renal failure: Qualified Codes: N17.9 - Acute kidney failure, unspecified Manuelito Lima MD Jul 22, 2017 10:12
--- NOTE | 2017-07-22 11:02 | HHI.FPPN ---
Subjective Remarks Patient states that he is doing well this morning. He is still having increased urination. He describes the urine as not cloudy and nonbloody. He is having no cramping in his muscles. He has vomited once since yesterday, but Zofran made him feel less nauseous. He describes the vomit as yellow. No diarrhea. No fevers or chills, no chest pain, no shortness of breath, no abdominal pain. Objective Vitals Vital Signs Date Time Temp Pulse Resp B/P (MAP) Pulse Ox O2 Delivery O2 Flow Rate FiO2 07/22/17 08:00 98.6 51 17 152/100 (117) 99 07/22/17 05:06 97.9 52 18 174/82 (112) 97 07/22/17 00:38 97.9 55 18 162/81 (108) 93 07/21/17 21:48 97.6 48 18 171/99 (123) 97 07/21/17 16:00 96.9 50 20 174/86 (115) 100 07/21/17 12:00 97.6 50 20 162/86 (111) 100 I/O 07/21/17 07/21/17 07/21/17 07/22/17 07/22/17 07/22/17 07:00 15:00 23:00 07:00 15:00 23:00 Intake Total 1000 ml 1120 ml 1750 ml Output Total 1200 ml 800 ml Balance -200 ml 1120 ml 950 ml Intake Oral 120 ml 750 ml IV Total 1000 ml 1000 ml 1000 ml Output Urine Total 1000 ml 800 ml Emesis 200 ml # Voids 3 # Bowel Movements 0 Result Diagram: 07/22/17 0551 07/22/17 0610 Objective Remarks GEN: NAD HEENT: PERRL poor dentition CV: No murmurs, RRR, bradycardic to 50 bpm RESP: CTAB GI: Soft NT : CVA tenderness B/L. Pain on medial mid thigh to palpation, no evidence of hematoma or bruising. A/P Assessment and Plan Mr. Nelson is a 32-year-old male presenting with vomiting. He is being admitted for acute renal failure. Creatinine upon admission to the ED was 9.53. Problem List: (1) Acute renal failure ICD Codes: N17.9 - Acute kidney failure, unspecified Status: Acute Plan: Creatinine upon admission to the ED was 9.53. Last creatinine on record at [facility] was 02/2004 which was 1.9. Previous to that was 05/2003- 1.1. Patient did have a CT with contrast today so will expect a greater increase in creatinine. BUN at 25. Most likely due to dehydration from vomiting. * Given 2 2L boluses and a 1L bolus in ED * Nephrology consulted, appreciate recs * D5W-1/2NS at 100mls/hr * maintenance IV fluids and send the workup for vasculitis including RIVAS, ANCA and also serum protein electrophoresis along with complement. * If his renal function does not improve, he possibly will need dialysis. Also he will need biopsy of the kidney. * Monitor I&Os * Avoid nephrotoxic medications * Renally dose medications (2) Dehydration ICD Codes: E86.0 - Dehydration Status: Acute Plan: Due to vomiting and not hydrating for the past 3 days. * See plan above for ED course and IVF regimen (3) Nausea and vomiting ICD Codes: R11.2 - Nausea with vomiting, unspecified Status: Acute Plan: Mostly due to gastritis. * See plan above for hydration * NPO for now, advance diet as tolerated * Zofran for nausea (4) FEN Status: Acute Plan: Fluids: Maintenance fluids as above Electrolytes: Monitor and replete as needed Nutrition: NPO for now, advance as tolerated DVT ppx: Not indicated at this time GI ppx: PRN meds Pain mgmt: Tylenol and [place] SDW Dr. Lee, Dr. Joe Hayward, and Dr. Lisa Redman Problem Qualifiers (1) Acute renal failure: Qualified Codes: N17.9 - Acute kidney failure, unspecified (2) Nausea and vomiting: Qualified Codes: R11.2 - Nausea with vomiting, unspecified Lisa Redman MD R1 Jul 22, 2017 11:02
[2017-07-23] VITALS: BP 192/97; PULSE 48; RESP 18; TEMP 98.2; O2SAT 98
[2017-07-23] MEDS: cloNIDine HCL 0.1 MG TAB PO PRN (00:10)
[2017-07-23] MEDS: ACETAMINOPHEN/HYDROcodone 325 MG/5 MG TAB PO PRN ×2 (00:14→06:40)
[2017-07-23 02:15] VITALS: BP 168/92
[2017-07-23 04:00] VITALS: BP 175/93; PULSE 47; RESP 16; TEMP 98.2; O2SAT 98
[2017-07-23] MEDS: DEXT 5%-NACL 0.45% 1000 ML INJ 1,000 ML IV SCH (05:57)
[2017-07-23 08:00] VITALS: BP 179/92; PULSE 50; RESP 21; TEMP 98.1; O2SAT 96
[2017-07-23] MEDS ORDERED: amLODIPine BESYLATE 5 MG TAB PO SCH (09:00)
[2017-07-23] MEDS: DOCUSATE SODIUM 50 MG/SENNA 8.6 MG TAB PO SCH (09:00)
[2017-07-23 09:40] LABS: AUTOMATED NEUTROPHIL # 6.1 TH/MM3 (1.8-7.7); BASOPHIL % 0.3 % (0.0-2.0); EOSINOPHIL # 0.2 TH/MM3 (0-0.4); HEMATOCRIT 43.8 % (39.0-51.0); HEMO FLAGS DIFF FINAL; LYMPH % 15.1 % (9.0-44.0); LYMPHOCYTE # 1.3 TH/MM3 (1.0-4.8); MEAN CELL VOLUME 86.4 FL (80.0-100.0); MEAN CORPUSCULAR HEMOGLOBIN 28.4 PG (27.0-34.0); MEAN CORPUSCULAR HGB CONC 32.9 % (32.0-36.0); MONO % 12.5 % (0.0-8.0); NEUT % 70.1 % (16.0-70.0); PLATELET COUNT 203 TH/MM3 (150-450); RED BLOOD COUNT 5.06 MIL/MM3 (4.50-5.90); RED CELL DISTRIBUTION WIDTH 13.5 % (11.6-17.2); WHITE BLOOD COUNT 8.7 TH/MM3 (4.0-11.0)
[2017-07-23] MEDS: ONDANSETRON HCL 4 MG/2 ML VIAL IVP PRN (09:55)
[2017-07-23] MEDS: SODIUM CHLORIDE 0.9% FLUSH 10 ML FLUSH IV FLUSH SCH (09:56)
--- NOTE | 2017-07-23 10:01 | HHI.FPPN ---
Subjective Remarks Patient seen and examined this morning. He states that he vomited once this morning. Non bloody, nonbilious. Overnight he was feeling some anxiety about his IV going off and thought it contributed to his high blood pressures. No fever/chills, no CP, no SOB, no abdominal pain, no diarrhea/constipation. He had been decreasing his frequency of pain meds since his abdominal pain has decreased. Objective Vitals Vital Signs Date Time Temp Pulse Resp B/P (MAP) Pulse Ox O2 Delivery O2 Flow Rate FiO2 07/23/17 08:00 98.1 50 21 179/92 (121) 96 07/23/17 04:00 98.2 47 16 175/93 (120) 98 07/23/17 02:15 168/92 (117) 07/23/17 01:14 18 07/23/17 00:00 98.2 48 18 192/97 (128) 98 07/22/17 20:09 52 07/22/17 20:08 99.1 53 17 141/72 (95) 98 07/22/17 17:16 18 07/22/17 16:00 99.3 52 17 191/101 (131) 98 07/22/17 12:00 96.0 66 17 149/69 (95) 98 I/O 07/22/17 07/22/17 07/22/17 07/23/17 07/23/17 07/23/17 07:00 15:00 23:00 07:00 15:00 23:00 Intake Total 2680 ml 1000 ml 120 ml Balance 2680 ml 1000 ml 120 ml Intake Oral 1680 ml 120 ml IV Total 1000 ml 1000 ml # Voids 3 5 # Bowel Movements 1 Result Diagram: 07/23/17 0925 07/22/17 0610 Imaging Last Impressions Chest X-Ray 07/20/171414 Signed Impressions: Service Date/Time: Thursday, July 20, 2017 14:20 - CONCLUSION: Normal examination. Earnest Brock MD Abdomen/Pelvis CT 07/20/171414 Signed Impressions: Service Date/Time: Thursday, July 20, 2017 15:21 - CONCLUSION: Normal examination. Asim Leyva Jr., MD Objective Remarks GENERAL: Well-nourished, well-developed patient laying in bed, in no acute distress. SKIN: Warm and dry. HEAD: Normocephalic. EYES: No scleral icterus. No injection or drainage. CARDIOVASCULAR: Regular rate and rhythm without murmurs, gallops, or rubs. RESPIRATORY: Breath sounds equal bilaterally. No accessory muscle use. GASTROINTESTINAL: Abdomen soft, non-tender, nondistended. EXTREMITIES: No cyanosis, or edema. NEUROLOGICAL: Awake, alert. Non-focal. A/P Assessment and Plan Mr. Nelson is a 32-year-old male presenting with vomiting. He is being admitted for acute renal failure. Creatinine upon admission to the ED was 9.53. Problem List: (1) Acute renal failure ICD Codes: N17.9 - Acute kidney failure, unspecified Status: Acute Plan: Creatinine upon admission to the ED was 9.53. Last creatinine on record at [facility] was 02/2004 which was 1.9. Previous to that was 05/2003- 1.1. Patient did have a CT with contrast today so will expect a greater increase in creatinine. BUN at 25. Most likely due to dehydration from vomiting. Creatinine has improved since admission. Down to 4.0 on 07/23. BUN normalized at 17. GFR is still low at 21. * Given 2 2L boluses and a 1L bolus in ED * Nephrology consulted, appreciate recs * D5W-1/2NS at 100mls/hr * maintenance IV fluids and send the workup for vasculitis including RIVAS, ANCA and also serum protein electrophoresis along with complement. * If his renal function does not improve, he possibly will need dialysis. Also he will need biopsy of the kidney. * Monitor I&Os * Avoid nephrotoxic medications * Renally dose medications (2) Dehydration ICD Codes: E86.0 - Dehydration Status: Resolved Plan: Due to vomiting and not hydrating for the past 3 days. * See plan above for ED course and IVF regimen (3) Nausea and vomiting ICD Codes: R11.2 - Nausea with vomiting, unspecified Status: Acute Plan: Mostly due to gastritis. * See plan above for hydration * NPO for now, advance diet as tolerated * Zofran for nausea (4) FEN Status: Acute Plan: Fluids: Maintenance fluids as above Electrolytes: Monitor and replete as needed Nutrition: NPO for now, advance as tolerated DVT ppx: Not indicated at this time GI ppx: PRN meds Pain mgmt: Tylenol and [place] SDW Dr. Lee, Dr. Joe Hayward, and Dr. Lisa Redman Problem Qualifiers (1) Acute renal failure: Qualified Codes: N17.9 - Acute kidney failure, unspecified (2) Nausea and vomiting: Qualified Codes: R11.2 - Nausea with vomiting, unspecified Lisa Redman MD R1 Jul 23, 2017 10:01
[2017-07-23 11:12] LABS: ALKALINE PHOSPHATASE 49 U/L (45-117); ALT (GPT) 17 U/L (12-78); ANION GAP 6 MEQ/L (5-15); AST (GOT) 25 U/L (15-37); BICARBONATE 26.3 MEQ/L (21.0-32.0); BLOOD UREA NITROGEN 17 MG/DL (7-18); CHLORIDE 107 MEQ/L (98-107); GLOMERULAR FILTRATION RATE 21 ML/MIN (>89); SODIUM (NA) 139 MEQ/L (136-145); TOTAL BILIRUBIN ADULT 0.4 MG/DL (0.2-1.0)
[2017-07-23 11:13] LABS: POTASSIUM 4.5 MEQ/L (3.5-5.1)
[2017-07-23 12:00] VITALS: BP 189/97; PULSE 50; RESP 22; TEMP 97.7; O2SAT 97
[2017-07-23] MEDS ORDERED: amLODIPine BESYLATE 5 MG TAB PO ONE (14:00)
--- NOTE | 2017-07-23 15:10 | HHI.DCPOC ---
Discharge Care Plan Diagnosis: (1) Acute renal failure (2) Nausea and vomiting (3) Dehydration Goals to Promote Your Health * To prevent worsening of your condition and complications * To maintain your health at the optimal level Directions to Meet Your Goals Take your medications as prescribed Follow your dietary instruction Follow activity as directed Keep your appointments as scheduled Take your immunizations and boosters as scheduled If your symptoms worsen call your PCP, if no PCP go to Urgent Care Center or Emergency Room Smoking is Dangerous to Your Health. Avoid second hand smoke Call the 24-hour hour crisis hotline for domestic abuse at Deborah Hayward MD R2 Jul 23, 2017 15:10
[2017-07-23] MEDS ORDERED: ZOFR4TAB3 SL (15:15)
[2017-07-23 15:21] LABS: BLOOD, URINE NEG (NEG); COMMENT (UR) CULT NOT INDICATED; CULTURE IF INDICATED CULT NOT INDICATED; GLUCOSE,URINE NEG (NEG); KETONE, URINE NEG (NEG); NITRITE,URINE NEG (NEG); PH, URINE 5.5 (5.0-8.5); URINE COLOR LIGHT-YELLOW (YELLW/STRAW)
[2017-07-23] MEDS ORDERED: AMLO5TAB2 PO (15:26)
--- NOTE | 2017-07-23 15:32 | HHI.PR ---
Addendum to Inpatient Note Addendum Reason: Additional Documentation Additional Information ADDENDUM Patient chart was evaluated this afternoon. JOSSELIN improving, creatinine now 4.0. Medically cleared by renal team per verbal report. Patient is ready to be discharged to home. He is medically cleared for home by primary team, to have followup BMP on 07/26/17 and close follow up with PCP in approximately one week. He will continue amlodipine until follow-up. Plan was discussed in detail with Dr. Lee, attnending, and patient who agrees with plan. Case management will assist patient in getting blue card and setting up for scripts. Deborah Hayward MD R2 Jul 23, 2017 15:32
--- NOTE | 2017-07-23 15:39 | HHI.DS ---
Discharge Summary Admission Date Jul 20, 2017 at 16:57 Discharge Date: Jul 23, 2017 Admitting Diagnosis Acute Renal Failure (1) Acute renal failure Diagnosis: Principal Plan: Creatinine upon admission to the ED was 9.53. Last creatinine on record at [facility] was 02/2004 which was 1.9. Previous to that was 05/2003- 1.1. Patient did have a CT with contrast today so will expect a greater increase in creatinine. BUN at 25. Most likely due to dehydration from vomiting. Creatinine has improved since admission. Down to 4.0 on 07/23. BUN normalized at 17. GFR is still low at 21. * Given 2 2L boluses and a 1L bolus in ED * Nephrology consulted, appreciate recs * D5W-1/2NS at 100mls/hr * maintenance IV fluids and send the workup for vasculitis including RIVAS, ANCA and also serum protein electrophoresis along with complement. * If his renal function does not improve, he possibly will need dialysis. Also he will need biopsy of the kidney. * Monitor I&Os * Avoid nephrotoxic medications * Renally dose medications ICD Codes: N17.9 - Acute kidney failure, unspecified Status: Acute (2) Dehydration Diagnosis: Principal Plan: Due to vomiting and not hydrating for the past 3 days. * See plan above for ED course and IVF regimen ICD Codes: E86.0 - Dehydration Status: Resolved (3) Nausea and vomiting Diagnosis: Secondary Plan: Mostly due to gastritis. * See plan above for hydration * NPO for now, advance diet as tolerated * Zofran for nausea ICD Codes: R11.2 - Nausea with vomiting, unspecified Status: Acute (4) FEN Diagnosis: Secondary Plan: Fluids: Maintenance fluids as above Electrolytes: Monitor and replete as needed Nutrition: NPO for now, advance as tolerated DVT ppx: Not indicated at this time GI ppx: PRN meds Pain mgmt: Tylenol and [place] SDW Dr. Lee, Dr. Joe Hayward, and Dr. Lisa Redman Status: Acute Consultants Nephrology Brief History Mr. Nelson is a 32-year-old male with no past medical history presenting with nausea and vomiting. He states that his vomiting started 3 days ago, Saturday. He thought he had a caught a bug from his family because they were sick with colds. He had not eaten anything differently. He also states that he has abdominal pain. He describes this pain as a 6 out of 10, diffuse aching pain that is constant with no radiation. Vomiting makes it worse and a medication given in the ED made it better. He describes the vomit as looking like whatever he ate. Nonbloody, but bilious (greenish). He ultimately came to the hospital today because of vomiting wouldn't stop. The last meal that stayed down was 3 days ago, Saturday. He states that he also had decreased urine output. These last few days he has only urinated twice. He usually urinates a lot during the day. He describes his urine as not cloudy, nonbloody. No family history of any kidney problems no PMH of kidney problems. No history of any kidney stones. He took one antibiotic pill that he got from a friend a few days ago. Only took 2 ibuprofens a day. He has also been constipated for the past few days. He had one black stool today. However, he has used Pepto-Bismol these past few days. CBC/BMP: 07/23/17 0925 07/23/17 0925 Significant Findings Laboratory Tests Test 07/20/17 20:58 07/21/17 02:50 07/21/17 07:41 07/22/17 05:51 Blood Urea Nitrogen 25 MG/DL (7-18) 25 MG/DL (7-18) Creatinine 8.91 MG/DL (0.60-1.30) 8.34 MG/DL (0.60-1.30) Random Glucose 121 MG/DL (74-106) Calcium Level 8.0 MG/DL (8.5-10.1) 8.2 MG/DL (8.5-10.1) Estimat Glomerular Filtration Rate 8 ML/MIN (>89) 9 ML/MIN (>89) Urine Protein 30 mg/dL (NEG-TRACE) Urine Occult Blood SMALL (NEG) Urine RBC 7 /hpf (0-3) Urine Bacteria RARE /hpf (NONE) Urine Cannabinoids Screen POS (NEG) Monocytes (%) (Auto) 15.6 % (0.0-8.0) 14.4 % (0.0-8.0) Monocytes # (Auto) 1.5 TH/MM3 (0-0.9) 1.3 TH/MM3 (0-0.9) Total Protein 5.9 GM/DL (6.4-8.2) Albumin 3.3 GM/DL (3.4-5.0) Phosphorus Level 5.0 MG/DL (2.5-4.9) Total Creatine Kinase 652 U/L (39-308) Complement C3 88 MG/DL (90-180) Red Blood Count 4.46 MIL/MM3 (4.50-5.90) Hemoglobin 12.9 GM/DL (13.0-17.0) Hematocrit 38.1 % (39.0-51.0) Neutrophils (%) (Auto) 70.3 % (16.0-70.0) Test 07/22/17 06:10 07/23/17 09:25 07/23/17 14:00 Blood Urea Nitrogen 24 MG/DL (7-18) Creatinine 6.49 MG/DL (0.60-1.30) 4.00 MG/DL (0.60-1.30) Calcium Level 8.0 MG/DL (8.5-10.1) Estimat Glomerular Filtration Rate 12 ML/MIN (>89) 21 ML/MIN (>89) Neutrophils (%) (Auto) 70.1 % (16.0-70.0) Monocytes (%) (Auto) 12.5 % (0.0-8.0) Monocytes # (Auto) 1.1 TH/MM3 (0-0.9) Albumin 2.9 GM/DL (3.4-5.0) Imaging Last Impressions Chest X-Ray 07/20/171414 Signed Impressions: Service Date/Time: Thursday, July 20, 2017 14:20 - CONCLUSION: Normal examination. Earnest Brock MD Abdomen/Pelvis CT 07/20/17 1415 Signed Impressions: Service Date/Time: Thursday, July 20, 2017 15:21 - CONCLUSION: Normal examination. Asim Leyva Jr., MD PE at Discharge GENERAL: Well-nourished, well-developed patient laying in bed, in no acute distress. SKIN: Warm and dry. HEAD: Normocephalic. EYES: No scleral icterus. No injection or drainage. CARDIOVASCULAR: Regular rate and rhythm without murmurs, gallops, or rubs. RESPIRATORY: Breath sounds equal bilaterally. No accessory muscle use. GASTROINTESTINAL: Abdomen soft, non-tender, nondistended. EXTREMITIES: No cyanosis, or edema. NEUROLOGICAL: Awake, alert. Non-focal. Hospital Course Mr. Nelson is a 32-year-old male presenting with vomiting. He is being admitted for acute renal failure. Creatinine upon admission to the ED was 9.53. He was admitted for aggressive IVFs and close monitoring. JOSSELIN improved over hospital stay to 4.00 on 07/23, with GFR improvement to 21. Patient symptomatically improved on evaluation 07/23/17. No fever/chills, no CP , no SOB, no abdominal pain, no diarrhea/constipation. He had been decreasing his frequency of pain meds since his abdominal pain has decreased. Patient chart was evaluated this afternoon. JOSSELIN improving, creatinine now 4.0. Medically cleared by [facility] per verbal report. Patient is ready to be discharged to home. He is medically cleared for home by primary team, to have follow-up BMP on 07/26/17 and close follow up with PCP (preferably Dr. Deborah Hayward, Dr. Lisa Redman, or Dr. Gary Holland) in approximately one week at the [facility]. Nurse will call patient to schedule appointment but patient may also call [phone] to schedule appointment. He will continue amlodipine until follow-up, though HTN possibly related to rehydration vs. anxiety. Nephrotic syndrome not fully excluded but lower on differential given clinical exam showing no evidence of edema. He is counseled to review and comply with renal diet and improve PO hydration. Plan was discussed in detail with Dr. Lee, attending, and patient who agrees with plan. Case management will assist patient in getting blue card and setting up for scripts. Pt Condition on Discharge: Stable Discharge Disposition: Discharge Home Discharge Instructions DIET: Follow Instructions for: Renal Failure Diet Activities you can perform: Regular-No Restrictions Follow up Referrals: PCP Follow-up - 1 Week with Deborah Hayward MD R2 New Orders: BASIC METABOLIC PROF - 07/26/17 New Medications: Amlodipine (Amlodipine) 5 Mg Tab 5 MG PO DAILY for Blood Pressure Management, #30 TAB 0 Refills Ondansetron Odt (Zofran Odt) 4 Mg Tab 4 MG SL Q6HR PRN for Nausea/Vomiting, #30 TAB 0 Refills Deborah Hayward MD R2 Jul 23, 2017 15:39
[2017-07-23 16:53] LABS: CREATINE KINASE 485 U/L (39-308); HDL CHOLESTEROL 51.5 MG/DL (40.0-60.0); LDL CHOLESTEROL 52 MG/DL (0-99)
[2017-07-23 17:42] LABS: CKMB 1.2 NG/ML (0.5-3.6)
[2017-07-23 17:50] LABS: ALBUMIN SPE 3.51 GM/DL (3.50-5.00); ALPHA 1 GLOBULIN 0.18 GM/DL (0.11-0.29); ALPHA 2 GLOBULIN 0.73 GM/DL (0.22-1.00); BETA GLOBULINS (SPE) 0.57 GM/DL (0.53-1.03)
--- NOTE | 2017-07-23 19:29 | HHI.NPPN ---
Subjective Renal Failure: Chronic, Acute History of Present Illness 32-year-old male with no significant past medical history who came to the hospital with complaint of abdominal pain mainly in the epigastric area associated with vomiting. I was called to see the patient because of very high BUN and creatinine. The patient denies any known history of renal disease. He has not been seeing any print developer automatic or any other medical doctors. On looking back, it seems like his creatinine was 1.1 in 2002 and 1.9 in 2003. Additional Remarks Patient is alert, feeling better, no vomiting, seen in early afternoon. Review of Systems General Constitutional: Fatigue Cardiovascular Cardiac: LACY Gastrointestinal Gastrointestinal: Abdominal Pain, Nausea & Vomiting Objective Data Data 07/23/17 07/24/17 19:00 07:00 Intake Total 240 ml Balance 240 ml Intake Oral 240 ml Vital Signs Date Time Temp Pulse Resp B/P (MAP) Pulse Ox O2 Delivery O2 Flow Rate FiO2 07/23/17 12:00 97.7 50 22 189/97 (127) 97 07/23/17 08:00 98.1 50 21 179/92 (121) 96 07/23/17 04:00 98.2 47 16 175/93 (120) 98 07/23/17 02:15 168/92 (117) 07/23/17 01:14 18 07/23/17 00:00 98.2 48 18 192/97 (128) 98 07/22/17 20:09 52 07/22/17 20:08 99.1 53 17 141/72 (95) 98 -: 07/23/17 0925 07/23/17 0925 Physical Exam General Appearance: No Acute Distress, Comfortable Eyes Eye Exam: Pupils Equal Throat Throat Exam: Oral Mucosa [place] & Moist Neck Neck Exam: Neck Supple Pulmonary Resp Exam: Clear Bilaterally, Breath Sounds Equal, No Distress Cardiology CV Exam: Regular, Normal Sinus Rhythm Gastrointestinal/Abdomen GI Exam: Soft, Non-Tender, Bowel Sounds Present Extremeties Extremities Exam: No Edema Neurologic Neuro Exam: Alert, Awake, Oriented Psychiatric Psych Exam: Appropriate Responses Assessment/Plan Assessment Summary: JOSSELIN/Acute Renal Failure Problem List: (1) Dehydration ICD Codes: E86.0 - Dehydration Status: Resolved (2) Abdominal pain ICD Codes: R10.9 - Unspecified abdominal pain Status: Acute (3) Nausea and vomiting ICD Codes: R11.2 - Nausea with vomiting, unspecified Status: Acute (4) Acute renal failure ICD Codes: N17.9 - Acute kidney failure, unspecified Status: Acute Plan Patient has possibly chronic kidney disease and develop JOSSELIN. Creatinine is slightly better. Urine out put increased. BNP is better. Most likely has JOSSELIN due to NSAID, Dehydration and some element of Rhabdo. as CPK was high. Continue IVF, C3 is slightly low, C4 is normal. Other serology and HIV all PND. Creatinine is improving. Will defer Kidney Biopsy until see improvement in the Creatinine. Now for D/C, told to follow with his PCP and can refer to Nephrology if needed. Problem Qualifiers (1) Abdominal pain: Qualified Codes: R10.84 - Generalized abdominal pain (2) Nausea and vomiting: Qualified Codes: R11.2 - Nausea with vomiting, unspecified (3) Acute renal failure: Qualified Codes: N17.9 - Acute kidney failure, unspecified Manuelito Lima MD Jul 23, 2017 19:29
[2017-07-23 21:21] LABS: HEMOGLOBIN A1a 0.9 %; HEMOGLOBIN A1b 1.4 %; HEMOGLOBIN Ao 86.4 %; HEMOGLOBIN LA1C 1.7 %; HEMOGLOBIN P3 3.4 %
[2017-07-24 13:52] LABS: MYELOPEROXIDASE LESS THAN 1.0 AI (<1.0); PROTEINASE-3 LESS THAN 1.0 AI (<1.0)
== END 2017-07-23 16:49 | disposition home or self-care (01) | DRG 683 ==
LOC: NEPE 13:53 → NEDH 16:57 → N07A 18:04
PROVIDERS: ADMIT Family Medicine; ATTEND Family Medicine
DX: N17.9 Acute kidney failure, unspecified (principal); E87.1 Hypo-osmolality and hyponatremia; M62.82 Rhabdomyolysis; E86.0 Dehydration; K59.00 Constipation, unspecified; F17.290 Nicotine dependence, other tobacco product, uncomplicated; F12.90 Cannabis use, unspecified, uncomplicated; K29.70 Gastritis, unspecified, without bleeding; Z88.0 Allergy status to penicillin; Z87.730 Personal history of (corrected) cleft lip and palate; T39.395A Adverse effect of other nonsteroidal anti-inflammatory drugs [NSAID], initial encounter
CPT/HCPCS: 71010; 74177; 80048; 80053; 80061; 80307; 81001; 82550; 82552; 82570; 83036; 83605; 83690; 83735; 84100; 84165; 84300; 85025; 85610; 85730; 86021; 86038; 86160; 86703; 96361; 96374; 96375; J1170; J2405; J7030; Q9967